=== PATIENT | female | born 1995 | race African-American/Black ===

== ENCOUNTER 2023-12-01 05:02 | Emergency (ER) | payer MEDICAID, OTHER ==
[~2023-12-01] VITALS: Ht 157.5 cm; Wt 85.6 kg
[2023-12-01] MEDS ORDERED: PRED20TA2 PO (07:08)
[2023-12-01] MEDS ORDERED: AUG875T PO (07:08)
[2023-12-01] MEDS: cefTRIAXone SOD 1,000 MG VL IM ONE (07:08)
[2023-12-01] MEDS ORDERED: IBUP1TAB5 PO (07:09)
[2023-12-01] MEDS: methylPREDNISolone SOD SUCC 125 MG/2 ML VL IM ONE (07:09)
[2023-12-01 07:33] VITALS: TEMP 97.8; O2SAT 100
[2023-12-01] MEDS: MORPHINE SULFATE 4 MG/ML SYR/VIAL IM ONE (07:52)
[2023-12-01 08:22] VITALS: BP 128/79; PULSE 79; RESP 18
== END 2023-12-01 08:24 | disposition home or self-care (01) ==
LOC: ER 05:15
DX: J03.90 Acute tonsillitis, unspecified (principal); H66.92 Otitis media, unspecified, left ear; Z79.899 Other long term (current) drug therapy
CPT/HCPCS: 96372; 99285; J0696; J2270; J2919